=== PATIENT | male | born 1970 | race Native Hawaiian/Other Pacific Islander ===

== ENCOUNTER 2018-11-01 23:00 | Inpatient (IN) | payer OTHER ==
[~2018-11-01] VITALS: Ht 175.3 cm; Wt 73.6 kg
[2018-11-01 22:00] VITALS: BP 163/81; TEMP 94.8
[2018-11-01 23:00] VITALS: BP 182/92
[~2018-11-01 23:00] MED LIST: ADMELOG SO100 UNIT/M SC; AMLODIPINE BESYLATE PO; ASA LOW DOSE81 MG PO; CLONIDINE HYDR0.1 M1 PO; CLOPIDOGREL75 MG PO; CYCL10TA35 PO; FURO80TA4 PO; HUMULIN N100 UNIT/1 SC; HYDRALAZINE50 MG PO; INSUINJ20 SC; LISI10TA11 PO; LISI20TA11 PO; LORCET 5-325 MG1 TAB PO; METO50TA27 PO; NOVOLIN N1 ML SC; PRAVACHOL20 MG PO; SIMV20TA2 PO
[2018-11-02] VITALS (17 sets, daily range): BP systolic 103–207; BP diastolic 54–94; TEMP 94.8–98.5; Ht 175.3 cm; Wt 73.6 kg
[2018-11-02 06:05] LABS: POTASSIUM 4.4 mmol/L (3.6-5.2)
[2018-11-02 12:19] LABS: PLATELET COUNT 324 K/uL (142-355)
[2018-11-02 12:32] LABS: POTASSIUM 4.2 mmol/L (3.6-5.2)
[2018-11-02] MEDS ORDERED: FINGERSTIX (16:57)
[2018-11-04] MEDS ORDERED: VITAMIN D50000 UNIT PO (09:55)
[2018-11-04] MEDS ORDERED: ESCI10TA PO (09:56)
== END 2018-11-02 14:07 | disposition other institution (70) | DRG 638 ==
LOC: ICU 23:00
PROVIDERS: Internal Medicine; ADMIT Family Medicine
DX: E11.649 Type 2 diabetes mellitus with hypoglycemia without coma (principal); I12.0 Hypertensive chronic kidney disease with stage 5 chronic kidney disease or end stage renal disease; N17.8 Other acute kidney failure; E78.49 Other hyperlipidemia; Z86.73 Personal history of transient ischemic attack (TIA), and cerebral infarction without residual deficits; H54.8 Legal blindness, as defined in USA; E86.0 Dehydration; E11.22 Type 2 diabetes mellitus with diabetic chronic kidney disease; N18.5 Chronic kidney disease, stage 5
CPT/HCPCS: 36415; 80048; 80053; 83735; 84100; 85027

== ENCOUNTER 2018-11-09 18:33 | Emergency (ER) | payer OTHER ==
[~2018-11-09] VITALS: Ht 175.3 cm; Wt 71.7 kg
[~2018-11-09 18:33] MED LIST changes: +ESCI10TA PO; +FINGERSTIX; +VITAMIN D50000 UNIT PO
[2018-11-09 19:42] VITALS: BP 190/93; TEMP 98.5
== END 2018-11-09 19:47 | disposition home or self-care (01) ==
LOC: ED 18:33
PROC: 0HQLXZZ Repair Left Lower Leg Skin, External Approach (ICD-10-PCS; principal; 2018-11-09)
DX: S81.812A Laceration without foreign body, left lower leg, initial encounter (principal); W26.8XXA Contact with other sharp object(s), not elsewhere classified, initial encounter
CPT/HCPCS: 90471; 90715; 99283

== ENCOUNTER 2018-12-14 16:13 | Outpatient (CLI) | payer OTHER ==
[2018-12-14 16:51] LABS: PLATELET COUNT 363 K/uL (142-355)
[2018-12-14 16:59] LABS: POTASSIUM 5.3 mmol/L (3.6-5.2)
== END 2018-12-14 23:42 | disposition home or self-care (01) ==
LOC: LABW 16:13
PROVIDERS: Internal Medicine
DX: N18.5 Chronic kidney disease, stage 5 (principal)
CPT/HCPCS: 36415; 80053; 81000; 82330; 82570; 83735; 84100; 84155; 85027

== ENCOUNTER 2019-02-24 16:33 | Outpatient (CLI) | payer OTHER ==
[2019-02-24 17:03] LABS: PLATELET COUNT 384 K/uL (142-355)
[2019-02-24 17:15] LABS: POTASSIUM 5.1 mmol/L (3.6-5.2)
== END 2019-02-24 21:03 | disposition home or self-care (01) ==
LOC: LABW 16:33
PROVIDERS: Internal Medicine
DX: N18.5 Chronic kidney disease, stage 5 (principal); N25.81 Secondary hyperparathyroidism of renal origin
CPT/HCPCS: 36415; 80053; 81000; 82306; 82570; 83735; 83970; 84100; 84155; 85027

== ENCOUNTER 2019-03-07 21:33 | Emergency (ER) | payer OTHER ==
[~2019-03-07] VITALS: Ht 175.3 cm; Wt 77.1 kg
[2019-03-07 23:14] LABS: PLATELET COUNT 342 K/uL (142-355)
[2019-03-07 23:30] LABS: POTASSIUM 5.2 mmol/L (3.6-5.2)
[2019-03-08 02:30] VITALS: BP 184/88; TEMP 98.2
== END 2019-03-08 02:30 | disposition short-term general hospital (02) ==
LOC: ED 21:33
PROVIDERS: Emergency Medicine
DX: N19 Unspecified kidney failure (principal); E11.10 Type 2 diabetes mellitus with ketoacidosis without coma; I10 Essential (primary) hypertension; F17.210 Nicotine dependence, cigarettes, uncomplicated; W10.8XXA Fall (on) (from) other stairs and steps, initial encounter; Y92.89 Other specified places as the place of occurrence of the external cause
CPT/HCPCS: 36415; 36600; 80053; 82805; 83605; 85027; 96360; 96372; 99285; J1815